=== PATIENT | female | born 1955 ===

== ENCOUNTER 2018-03-07 21:36 | Emergency (ER) | payer MEDICAID ==
[2018-03-07 22:02] VITALS: PULSE 86; TEMP 98.6
--- NOTE | 2018-03-07 22:31 | C.PDOC ---
History Of Present Illness 62 y/o female presents to ED for complaints of right sided and upper mid back pain that began suddenly today. Patient describes pain as sharp and worsens with movement. Denies chest pain, SOB, lower back pain, saddle distribution anesthesia, continence to urine or stool. Time Seen by Provider: 03/07/18 22:20 Chief Complaint (Nursing): Back Pain History Per: Patient History/Exam Limitations: no limitations Onset/Duration Of Symptoms: Hrs Current Symptoms Are (Timing): Still Present Quality Of Discomfort: Sharp Severity: Moderate Pain Scale Rating Of: 4 Previous Symptoms: Back Pain Associated Symptoms: None Exacerbating Factor(s): Movement Recent travel outside of the [place]: No Past Medical History Reviewed: Historical Data, Nursing Documentation, Vital Signs Vital Signs: Last Vital Signs Temp 98.6 F 03/08/18 00:12 Pulse 86 03/08/18 00:12 Resp 14 03/08/18 00:12 BP 160/86 H 03/08/18 00:12 Pulse Ox 98 03/08/18 00:12 - Medical History PMH: Back Problems, HTN Surgical History: No Surg Hx Family History: States: No Known Family Hx - Social History Hx Alcohol Use: No Hx Substance Use: No - Immunization History Hx Tetanus Toxoid Vaccination: No Hx Influenza Vaccination: Yes Hx Pneumococcal Vaccination: No Review Of Systems Except As Marked, All Systems Reviewed And Found Negative. Musculoskeletal: Positive for: Back Pain Physical Exam - Physical Exam Appears: Non-toxic, No Acute Distress Skin: Warm, Dry Head: Atraumatic, Normacephalic Eye(s): bilateral: Normal Inspection, PERRL, EOMI Oral Mucosa: Moist Neck: No Midline Cervical Tenderness, No Paracervical Tenderness, Supple Chest: Symmetrical, No Tenderness Cardiovascular: Rhythm Regular Respiratory: No Decreased Breath Sounds, No Rales, No Rhonchi, No Wheezing Gastrointestinal/Abdominal: Soft, No Tenderness Back: Other (Parathoracic tenderness; No swelling, erythema or crepitus; neurovascular intact distally ) Extremity: Normal ROM, No Deformity Extremity: Bilateral: Atraumatic, Normal Color And Temperature, Normal ROM Neurological/Psych: Oriented x3, Normal Speech (Speaking in full sentences ), Other (No focal deficits ) Gait: Steady ED Course And Treatment O2 Sat by Pulse Oximetry: 97 (RA) Pulse Ox Interpretation: Normal - Radiology CXR: Interpreted by Me, Viewed By Me CXR Interpretation: Yes: No Acute Disease. No: Infiltrates Medical Decision Making Medical Decision Making: Adminsitered Percoset and Toradol. Ordered Dorsal throacic X-Ray, EKG, CXR, and urinalysis. EKG: - Normal sinus rhythm at 79bpm - Normal [place] - Normal intervals - No ST-wave changes Assessment: - Mid thoracic back pain - Patient is stable for discharge Disposition Counseled Patient/Family Regarding: Studies Performed - Disposition Referrals: Erlin Yee MD [Primary Care Provider] - Disposition: HOME/ ROUTINE Disposition Time: 23:57 Condition: IMPROVED Additional Instructions: follow up with your family doctor within 2 days call to make an appointment take medications as needed for pain return to ER if symptoms worsens or progress Prescriptions: Naproxen [Naprosyn] 500 mg PO BID PRN #16 tab PRN Reason: Pain, Moderate (4-7) traMADol [Ultram] 50 mg PO TID PRN #12 tab PRN Reason: Pain, Moderate (4-7) Instructions: Low Back Pain in Adults, Upper Back Pain (DC) Forms: [facility] (Bengali), General Discharge Instructions - Clinical Impression Clinical Impression: Thoracic back pain - Scribe Statement The provider has reviewed the documentation as recorded by the Scribe Lan Marquez All medical record entries made by the Scribe were at my direction and personally dictated by me. I have reviewed the chart and agree that the record accurately reflects my personal performance of the history, physical exam, medical decision making, and the department course for this patient. I have also personally directed, reviewed, and agree with the discharge instructions and disposition.
[2018-03-07] MEDS ORDERED: Oxycodone/Acetaminophen 5/325 mg Tab PO STA (22:33)
[2018-03-07] MEDS ORDERED: Oxycodone/Acetaminophen 5/325 mg Tab ONE (22:49)
[2018-03-07 23:44] LABS: SQUAMOUS EPITHIAL 2 /hpf (0-5); URINE BILIRUBIN NEGATIVE (NEGATIVE); URINE BLOOD NEGATIVE (NEGATIVE); URINE CLARITY Clear (Clear); URINE COLOR Yellow (YELLOW); URINE GLUCOSE (UA) NORMAL (Normal); URINE LEUKOCYTE ESTERASE NEG Leu/uL (Negative); URINE PROTEIN NEGATIVE (NEGATIVE); URINE UROBILINOGEN NORMAL mg/dL (0.2-1.0)
[2018-03-08 00:13] VITALS: BP 160/86; RESP 14
[2018-03-08 00:26] VITALS: O2SAT 97
--- NOTE | 2018-03-08 10:15 | RAD ---
HISTORY: back pain COMPARISON: Chest radiograph dated 09/28/2017. TECHNIQUE: Chest PA and lateral FINDINGS: LUNGS: No active pulmonary disease. PLEURA: No significant pleural effusion identified. No pneumothorax apparent. CARDIOVASCULAR: Atherosclerotic aortic calcifications. Cardiomediastinal silhouette within normal limits. OSSEOUS STRUCTURES: Unchanged. VISUALIZED UPPER ABDOMEN: Normal. OTHER FINDINGS: None. IMPRESSION: No active disease.
--- NOTE | 2018-03-08 10:16 | RAD ---
HISTORY: back pain COMPARISON: Chest radiograph dated 09/28/2017. FINDINGS: BONES: Alignment maintained. No fracture. DISC SPACES: Multilevel disc space narrowing. SOFT TISSUES: Normal. OTHER FINDINGS: None. IMPRESSION: No acute fracture. Degenerative changes.
--- NOTE | 2018-03-09 20:58 | CARD ---
APPROVED REPORT EKG Measurement Heart [id number] CT 154P23 [id number] <Conclusion> Normal sinus rhythm Normal ECG
== END 2018-03-08 00:12 | disposition home or self-care (01) ==
LOC: C.ER 21:36 → SUPCPDRO 21:36 → C.ER 03-08 00:12
DX: M54.6 Pain in thoracic spine (principal)
CPT/HCPCS: 71046; 72070; 81001; 93005; 96372; 99284; J1885

== ENCOUNTER 2018-08-15 10:02 | Emergency (ER) | payer MEDICAID ==
[2018-08-15 10:14] VITALS: BMI 30.4
[2018-08-15 10:17] VITALS: TEMP 98.4; O2SAT 96
[2018-08-15] MEDS ORDERED: Albuterol-Ipratrop 3 mg / 0.5 (3 ml) UD ONE ×2 (10:51→11:17)
--- NOTE | 2018-08-15 11:58 | C.PDOC ---
History Of Present Illness 63 year old female presents to the ED for evaluation of cough, congestion, back pain, and chest discomfort associated with cough which has been intermittent for two weeks. Patient has been taking [id number] medication and cough medicine prescribed by her PMD, without relief. She denies fever, chills, nausea, vomiting. Time Seen by Provider: 08/15/18 11:15 Chief Complaint (Nursing): Cough, Cold, Congestion History Per: Patient History/Exam Limitations: no limitations Onset/Duration Of Symptoms: Other (two weeks ) Current Symptoms Are (Timing): Still Present Associated Symptoms: Cough, Nasal Congestion. denies: Fever, Chills, Nausea, Vomiting Additional History Per: Patient Past Medical History Reviewed: Historical Data, Nursing Documentation, Vital Signs Vital Signs: Last Vital Signs Temp 98.4 F 08/15/18 10:14 Pulse 101 H 08/15/18 10:14 Resp 22 08/15/18 10:14 BP 155/87 H 08/15/18 10:14 Pulse Ox 96 08/15/18 10:14 - Medical History PMH: Back Problems (fx), HTN Surgical History: No Surg Hx Family History: States: Unknown Family Hx - Social History Hx Alcohol Use: No Hx Substance Use: No - Immunization History Hx Tetanus Toxoid Vaccination: No Hx Influenza Vaccination: No Hx Pneumococcal Vaccination: No Review Of Systems Constitutional: Negative for: Fever, Chills ENT: Positive for: Nose Congestion Cardiovascular: Positive for: Other (chest discomfort with cough ) Respiratory: Positive for: Cough Gastrointestinal: Negative for: Nausea, Vomiting Musculoskeletal: Positive for: Back Pain Physical Exam - Physical Exam Appears: Non-toxic, No Acute Distress Skin: Normal Color, Warm, Dry Head: Atraumatic, Normacephalic Eye(s): bilateral: Normal Inspection Oral Mucosa: Moist Throat: Normal, No Erythema, No Exudate Neck: Supple Chest: Symmetrical, No Deformity, No Tenderness Cardiovascular: Rhythm Regular, No Murmur Respiratory: Normal Breath Sounds, No Rales, No Rhonchi, No Wheezing Extremity: Normal ROM, Capillary Refill (less than 2 seconds ) Neurological/Psych: Oriented x3, Normal Speech, Normal Cognition ED Course And Treatment O2 Sat by Pulse Oximetry: 96 (on RA) Pulse Ox Interpretation: Normal - Other Rad CXR X-Ray: Viewed By Me, Read By Radiologist Interpretation: Date of service: 08/15/2018. HISTORY: cough congestion. COMPARISON: March 07 2018. TECHNIQUE: Chest PA and lateral. FINDINGS: LUNGS: No consolidation. Lung volumes within normal limits. 7 mm nodular opacity over lateral left mid lung zone also projects over posterior left 5th rib-not appreciated on prior chest x-ray. Clinical significance indeterminate. PLEURA: No significant pleural effusion identified. No pneumothorax apparent. CARDIOVASCULAR: There is absence of aortic atherosclerotic calcification on x- ray. Top-normal heart size no pulmonary vascular congestion. OSSEOUS STRUCTURES: Moderate thoracic spondylosis. VISUALIZED UPPER ABDOMEN: Normal. OTHER FINDINGS: None. IMPRESSION: No consolidation or rosita pulmonary venous congestion. 7 to 8 mm nodular opacity projects over the lateral left mid lung zone and posterior left 5th rib its origin lung and/or rib is unclear at this time. Its clinical significance is also indeterminate. As it is not seen as such on the prior study consider noncontrast CT chest to further evaluate. Medical Decision Making Medical Decision Making: Impression: 63 year old female with cough associated with chest discomfort, congestion, back pain Plan: * CXR * Flu swab * Motrin PO * Tessalon Perles * Tylenol PO Progress: CXR and flu swab ordered and reviewed. Flu swab is negative for flu A/B. Motrin PO, Tessalon Perles PO, and Tylenol PO given. On reassessment, patient is resting comfortably, showing no signs of distress and is stable for discharge. Patient is advised to follow up with her PMD within 1-2 days for further evaluation. Advised to return to the ED if symptoms persist or worsen. Disposition Counseled Patient/Family Regarding: Diagnosis, Need For Followup - Disposition Referrals: Erlin Yee MD [Staff Provider] - Disposition: HOME/ ROUTINE Disposition Time: 11:55 Condition: GOOD Additional Instructions: You have viral upper respiratory infection. Take Tylenol or Motrin alternating every 4-6 hours for Fever 100.4F or higher. Rest and drink plenty of fluids. May use cool mist humidifier or vaporizer in room. Try taking over the counter antihistamine (Claritin, Tyra, Zyrtec), Decongestant or Cough medicine (Mucinex) as needed every 6-8 hours. Follow up with your primary medical doctor or clinic in 1 week for further evaluation. Prescriptions: Benzonatate [Tessalon Perles] 100 mg PO TID #30 sgl Ibuprofen [Motrin] 600 mg PO Q8 #30 tab Methylprednisolone [Medrol Dose Pack (21 tabs)] 4 mg PO DAILY #21 mg Instructions: Upper Respiratory Infection (ED) Forms: [facility] (Malawian), Work Excuse - POA Present On Arrival: None - Clinical Impression Clinical Impression: Upper respiratory infection - PA / [employer]IENT [employer] / Resident Statement MD/DO has reviewed & agrees with the documentation as recorded. - Scribe Statement The provider has reviewed the documentation as recorded by the Scribe (Ania Jones) All medical record entries made by the Scribe were at my direction and personally dictated by me. I have reviewed the chart and agree that the record accurately reflects my personal performance of the history, physical exam, medical decision making, and the department course for this patient. I have also personally directed, reviewed, and agree with the discharge instructions and disposition.
[2018-08-15 12:10] VITALS: BP 147/80; PULSE 85; RESP 20
--- NOTE | 2018-08-15 15:22 | RAD ---
Date of service: 08/15/2018 HISTORY: cough congestion COMPARISON: March 07 2018 TECHNIQUE: Chest PA and lateral FINDINGS: LUNGS: No consolidation. Lung volumes within normal limits. 7 mm nodular opacity over lateral left mid lung zone also projects over posterior left 5th rib-not appreciated on prior chest x-ray. Clinical significance indeterminate PLEURA: No significant pleural effusion identified. No pneumothorax apparent. CARDIOVASCULAR: There is absence of aortic atherosclerotic calcification on x-ray. Top-normal heart size no pulmonary vascular congestion. OSSEOUS STRUCTURES: Moderate thoracic spondylosis. VISUALIZED UPPER ABDOMEN: Normal. OTHER FINDINGS: None. IMPRESSION: No consolidation or rosita pulmonary venous congestion. 7 to 8 mm nodular opacity projects over the lateral left mid lung zone and posterior left 5th rib its origin lung and/or rib is unclear at this time. Its clinical significance is also indeterminate. As it is not seen as such on the prior study consider noncontrast CT chest to further evaluate. Comments: Study marked for PA review .
== END 2018-08-15 12:12 | disposition home or self-care (01) ==
LOC: C.ER 10:02
DX: J06.9 Acute upper respiratory infection, unspecified (principal)

== ENCOUNTER 2018-12-02 13:07 | Inpatient (IN) | payer MEDICAID ==
[2018-12-02 13:08] VITALS: BMI 30.4
[2018-12-02 13:15] VITALS: RESP 20
[2018-12-02] MEDS ORDERED: MethylPREDNISolone 40 mg Vial IVP STA (13:30)
[2018-12-02] MEDS ORDERED: Albuterol-Ipratrop 3 mg / 0.5 (3 ml) UD INH STA ×2 (13:30→13:31)
--- NOTE | 2018-12-02 13:35 | C.PDOC ---
History Of Present Illness 63 years old female with PMHx of HTN presents to ED for complaints of cough with yellow sputum, wheezing, bodyaches, and subjective fever that began 3 days ago. Denies any other physical complaints. Time Seen by Provider: 12/02/18 13:21 Chief Complaint (Nursing): Shortness Of Breath History Per: Patient History/Exam Limitations: no limitations Onset/Duration Of Symptoms: Days (3) Current Symptoms Are (Timing): Still Present Current Respiratory Medications: See Home Med List Associated Symptoms: Fever Recent travel outside of the [place]: No Past Medical History Reviewed: Historical Data, Nursing Documentation, Vital Signs Vital Signs: Last Vital Signs Temp 99.2 F 12/02/18 13:12 Pulse 115 H 12/02/18 13:12 Resp 20 12/02/18 13:12 BP 190/108 H 12/02/18 13:12 Pulse Ox 98 12/02/18 13:12 - Medical History PMH: Back Problems (fx), HTN Family History: States: Unknown Family Hx - Social History Hx Alcohol Use: No Hx Substance Use: No - Immunization History Hx Tetanus Toxoid Vaccination: No Hx Influenza Vaccination: No Hx Pneumococcal Vaccination: No Review Of Systems Except As Marked, All Systems Reviewed And Found Negative. Constitutional: Positive for: Fever, Other (Bodyaches ). Negative for: Chills Respiratory: Positive for: Cough (Dry ), Wheezing Gastrointestinal: Negative for: Nausea, Vomiting, Diarrhea Skin: Negative for: Rash Neurological: Negative for: Weakness, Numbness Physical Exam - Physical Exam Appears: Non-toxic, No Acute Distress, Other (Anxious ) Skin: Normal Color, Warm, Dry, No Rash Head: Atraumatic, Normacephalic Eye(s): bilateral: Normal Inspection, PERRL, EOMI Oral Mucosa: Moist Neck: Normal ROM, Supple Chest: Symmetrical, No Tenderness Cardiovascular: Rhythm Regular, No Murmur Respiratory: No Rales, Rhonchi (Diffuse ), No Wheezing Gastrointestinal/Abdominal: Soft, No Tenderness Extremity: Normal ROM Extremity: Bilateral: Atraumatic, Normal Color And Temperature, Normal ROM Pulses: Left Radial: Normal, Right Radial: Normal Neurological/Psych: Oriented x3, Normal Speech, Other (No focal deficits ) Gait: Steady ED Course And Treatment - Laboratory Results Result Diagrams: 12/06/18 06:30 12/06/18 06:30 O2 Sat by Pulse Oximetry: 98 (RA) Pulse Ox Interpretation: Normal Medical Decision Making Medical Decision Making: asthamtic bronchitis/copd (heavy previous smoker) Plan: * Duoneb/ Peak flow * methylprednisolone * Tylenol * CXR * Blood work * Flu Swab * Urinalysis * pt reassesse dsymptoms improving but persisitent. cxr neg. accepted dr yee Disposition - Disposition Disposition: HOSPITALIZED Disposition Time: 07:00 Condition: STABLE - Clinical Impression Clinical Impression: COPD (chronic obstructive pulmonary disease) - PA / [employer] / Resident Statement MD/DO has reviewed & agrees with the documentation as recorded. - Scribe Statement Lan Marquez All medical record entries made by the Scribe were at my direction and personally dictated by me. I have reviewed the chart and agree that the record accurately reflects my personal performance of the history, physical exam, medical decision making, and the department course for this patient. I have also personally directed, reviewed, and agree with the discharge instructions and disposition. Decision To Admit - Pt Status Changed To: Hospital Disposition Of: Observation - . Bed Request Type: Regular Admitting Physician: Erlin Yee Patient Diagnosis: COPD (chronic obstructive pulmonary disease)
[2018-12-02 14:00] LABS: BASO % 0.6 % (0.0-2.0); EOS # 0.1 K/uL (0.0-0.7); EOS % 1.9 % (0.0-4.0); HEMOGLOBIN 13.2 g/dL (11.0-16.0); LYMPH # 2.3 K/uL (1.0-4.3); LYMPH % 32.2 % (20.0-40.0); MEAN CELL VOLUME 72.2 fL (81.0-99.0); MEAN CORPUSCULAR HEMOGLOBIN 22.6 pg (27.0-31.0); MEAN CORPUSCULAR HGB CONC 31.3 g/dL (33.0-37.0); MEAN PLATELET VOLUME 8.3 fL (7.2-11.7); MONO # 0.5 K/uL (0.0-0.8); MONO % 7.2 % (0.0-10.0); NEUT # 4.2 K/uL (1.8-7.0); NEUT % 58.1 % (50.0-75.0); NRBC % 0.1 % (0.0-2.0); RBC 5.86 Mil/uL (3.80-5.20); RED CELL DISTRIBUTION WIDTH 14.6 % (11.5-14.5); WHITE BLOOD COUNT 7.2 K/uL (4.8-10.8)
[2018-12-02] MEDS ORDERED: Albuterol-Ipratrop 3 mg / 0.5 (3 ml) UD ONE (14:00)
[2018-12-02 14:07] LABS: INR 1.1
[2018-12-02 14:14] LABS: SQUAMOUS EPITHIAL 2 /hpf (0-5); URINE BACTERIA RARE (<OCC); URINE BILIRUBIN NEGATIVE (NEGATIVE); URINE BLOOD NEGATIVE (NEGATIVE); URINE CLARITY Hazy (Clear); URINE COLOR Yellow (YELLOW); URINE GLUCOSE (UA) NORMAL (Normal); URINE LEUKOCYTE ESTERASE NEG Leu/uL (Negative); URINE PROTEIN NEGATIVE (NEGATIVE); URINE UROBILINOGEN NORMAL mg/dL (0.2-1.0)
[2018-12-02 14:15] LABS: ALB/GLOB RATIO 1.4 (1.0-2.1); ALBUMIN 4.1 g/dL (3.5-5.0); ALT/SGPT 23 U/L (9-52); AST/SGOT 33 U/L (14-36); BLOOD UREA NITROGEN 15 mg/dL (7-17); CALCIUM 9.1 mg/dl (8.6-10.4); GFR NON-AFRICAN AMERICAN > 60
--- NOTE | 2018-12-02 16:33 | RAD ---
Date of service: 12/02/2018 HISTORY: SOB COMPARISON: Comparison is made with 08/15/2018 TECHNIQUE: Chest PA and lateral views FINDINGS: LUNGS: No active pulmonary disease. PLEURA: No significant pleural effusion identified. No pneumothorax apparent. CARDIOVASCULAR: No aortic atherosclerotic calcification present. Normal cardiac size. No pulmonary vascular congestion. OSSEOUS STRUCTURES: No significant abnormalities. VISUALIZED UPPER ABDOMEN: Normal. OTHER FINDINGS: None. IMPRESSION: No active disease.
[2018-12-02] MEDS: guaiFENesin 600 mg ER Tab PO SCH (21:16)
[2018-12-02] MEDS: MethylPREDNISolone 40 mg Vial IVP SCH (21:17)
[2018-12-02 21:45] LABS: ABG ALLEN TEST POS; ARTERIAL BLOOD GAS HCO3 19.6 mmol/L (21-28); ARTERIAL BLOOD GAS HEMOGLOBIN 11.3 g/dL (11.7-17.4); ARTERIAL BLOOD GAS O2 SAT 98.6 % (95-98); ARTERIAL BLOOD GAS PCO2 29 mm/Hg (35-45); ARTERIAL BLOOD GAS PH 7.38 (7.35-7.45); ARTERIAL BLOOD GAS PO2 102 mm/Hg (80-100); ARTERIAL BLOOD GAS TCO2 18.1 mmol/L (22-28)
[2018-12-03] MEDS: guaiFENesin 100 mg/5 ml Syrup UD PO PRN ×4 (04:10→21:32)
[2018-12-03] MEDS: Albuterol-Ipratrop 3 mg / 0.5 (3 ml) UD INH SCH ×4 (08:47→20:18)
[2018-12-03] MEDS: guaiFENesin 600 mg ER Tab PO SCH ×2 (09:11→17:23)
[2018-12-03] MEDS: MethylPREDNISolone 40 mg Vial IVP SCH ×2 (09:11→21:31)
[2018-12-03] MEDS: Enoxaparin 40 mg Syringe SC SCH (09:12)
--- NOTE | 2018-12-03 23:08 | CP.PCM.HP ---
Present on Admission - Present on Admission Any Indicators Present on Admission: No Past Patient History - Infectious Disease Hx of Infectious Diseases: None - Past Social History Smoking Status: Former Smoker - CARDIAC Hx Hypertension: Yes - MUSCULOSKELETAL/RHEUMATOLOGICAL Hx Musculoskeletal Disorders: Yes - PSYCHIATRIC Hx Substance Use: No - SURGICAL HISTORY Hx Surgeries: Yes Hx Tubal Ligation: Yes Other/Comment: R hand surgery. cysts removed from breasts - ANESTHESIA Hx Anesthesia: Yes Hx Anesthesia Reactions: No Meds Allergies/Adverse Reactions: Allergies Allergy/AdvReac Type Severity Reaction Status Date / Time No Known Allergies Allergy Verified 12/02/18 13:15 Results - Vital Signs Recent Vital Signs: Last Vital Signs Temp 99.1 F 12/03/18 16:04 Pulse 102 H 12/03/18 16:04 Resp 20 12/03/18 16:04 BP 162/93 H 12/03/18 16:04 Pulse Ox 96 12/03/18 20:00 - Labs Result Diagrams: 12/02/18 13:56 12/02/18 13:56
[2018-12-04] MEDS: Albuterol-Ipratrop 3 mg / 0.5 (3 ml) UD INH SCH ×5 (00:51→19:52)
[2018-12-04] MEDS: guaiFENesin 100 mg/5 ml Syrup UD PO PRN (02:00)
--- NOTE | 2018-12-04 05:57 | HP ---
CHIEF COMPLAINT: Cough and shortness of breath for last two days. HISTORY OF PRESENT ILLNESS: This is a 63-year-old female, well known to me with history of chronic smoker, hypertension and has history of two days of cough, congestion, shortness of breath, wheezing, chest tightness, chest pain upon deep inspiration, generalized weakness, dyspnea on exertion, wheezing, history of runny nose, stuffy nose, history of light yellow sputum production. She denies any nausea, vomiting, or diarrhea. She denies any history of polyuria, polydipsia, or polyphagia. She denies any history of hematuria or pyuria. She denies any sneezing, itchy eyes, or itchy nose. There is chest pain upon deep inspiration. Chest pain is in the substernal area. There is no history of dyspepsia. There is no history of generalized weakness. She has headache and dizziness. She denies any history of joint pain or hip pain. She denies any history of polyuria, polydipsia, or polyphagia. PAST MEDICAL HISTORY: Hypertension, hyperlipidemia. SOCIAL HISTORY: She is ex-smoker, non-EtOH user. CURRENT MEDICATIONS: At home, she takes losartan. PHYSICAL EXAMINATION: GENERAL: An elderly female, in minimal distress. VITAL SIGNS: Blood pressure 162/93, pulse 102, respiratory rate 20, temperature 99.1. SKIN: Senile turgor. No bruises. No purpura. No petechiae. No ecchymosis. HEENT: Atraumatic and normocephalic. Negative pallor. Negative jaundice. Extraocular movements are intact. NECK: Supple. Using accessory muscle. LUNGS: Bilateral inspiratory and expiratory rhonchi. Decreased air entry. Bibasilar crackles. CARDIOVASCULAR SYSTEM: S1 and S2, regular. ABDOMEN: Soft, nontender. Bowel sounds are positive. RECTAL: No masses. No bleed. EXTREMITIES: No clubbing, cyanosis, or edema. CENTRAL NERVOUS SYSTEM: Awake, alert, and oriented x3. Cranial nerves II through XII are normal. Power 5/5 x4. Plantars are downgoing. PLAN: Admit. Detailed orders are written. Seen and examined. Erlin Yee MD
[2018-12-04] MEDS: guaiFENesin 600 mg ER Tab PO SCH ×2 (09:10→17:16)
[2018-12-04] MEDS: MethylPREDNISolone 40 mg Vial IVP SCH ×2 (09:10→21:13)
[2018-12-04] MEDS: Enoxaparin 40 mg Syringe SC SCH (09:10)
[2018-12-04] MEDS ORDERED: Pneumococcal 23-Valent Vaccine IM ONE (10:00)
[2018-12-04] MEDS: Petrolatum Oint Foilpak (5 gm) TOP SCH ×2 (18:20→21:11)
--- NOTE | 2018-12-04 18:42 | CP.PCM.CON ---
History of Present Illness - History of Present Illness History of Present Illness: 63 year old female with past medical history of hypertension came to the hospital with 1 week of shortness of breath, wheezing, and a cough. 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 Patient saw Dr. Armstrong who gave her theraflu but she came to the hospital due to the symptoms not remitting. She is a chronic smoker of 40 years who quit 2 months ago. She denies ever having asthma or difficulty breathing in the past. In the ED patient was hypertensive, and tachypneic. She was treated with nebulizers and steroids, guaifenisin and ceftriaxone and transfered to the floor for COPD exacerbation. Patient states she has carpet at home but denies pets, environmental exposure to allergens/irritants/mold, denies GERD symptoms, prior hospitalizations, or snoring. PMHx: HTN PSHx: benign cyst of the breast, hand laceration repair. Meds: as per EMR Social: Smoker of 40 years, quit 2 months ago Allergies: denies ROS: Patient admits to cough, SOB, headache and chest pain with deep inspiration. All other systems reviewed and negative PE: HEENT: Atraumatic, normocephalic, moist mucous membranes, normal neck inspection Respiratory: Lungs clear to auscultation bilaterally Cardiovascular: regular rate and rhythm GI/abdominal: normoactive bowel sounds Extremities: no pedal edema Neurologic: alert Images: CXR- shows no active disease Assesment/Plan 1. COPD exacerbation. Continue current regimen. Newly diagnosed could benefit from PFT's Past Patient History - Infectious Disease Hx of Infectious Diseases: None - Past Medical History & Family History Past Medical History?: Yes - Past Social History Smoking Status: Current Some Days Smoker - CARDIAC Hx Hypertension: Yes - MUSCULOSKELETAL/RHEUMATOLOGICAL Hx Falls: No - PSYCHIATRIC Hx Substance Use: No - SURGICAL HISTORY Hx Surgeries: Yes Hx Tubal Ligation: Yes Other/Comment: R hand surgery. cysts removed from breasts - ANESTHESIA Hx Anesthesia: Yes Hx Anesthesia Reactions: No Meds Allergies/Adverse Reactions: Allergies Allergy/AdvReac Type Severity Reaction Status Date / Time No Known Allergies Allergy Verified 12/02/18 13:15 - Medications Medications: Current Medications Albuterol/Ipratropium (Duoneb 3 Mg/0.5 Mg (3 Ml) Ud) 3 ml INH RQID [facility] Last Admin: 12/04/18 16:03 Dose: 3 ml Emollient Ointment (Vaseline Oint) 5 gm TOP QID [facility] Last Admin: 12/04/18 18:20 Dose: 5 gm Enoxaparin Sodium (Lovenox) 40 mg SC DAILY [facility] Last Admin: 12/04/18 09:10 Dose: 40 mg Guaifenesin (Mucinex La) 600 mg PO BID [facility] Last Admin: 12/04/18 17:16 Dose: 600 mg Guaifenesin (Robitussin) 100 mg PO Q4H PRN PRN Reason: Cough Last Admin: 12/04/18 02:00 Dose: 100 mg Ceftriaxone Sodium 1 gm/ (Sodium Chloride) 100 mls @ 100 mls/hr IVPB Q24H [facility]; Protocol Last Admin: 12/03/18 21:31 Dose: 100 mls/hr Losartan Potassium (Cozaar) 100 mg PO DAILY [facility] Last Admin: 12/04/18 09:10 Dose: 100 mg Methylprednisolone (Solu-Medrol) 60 mg IVP Q12H [facility] Last Admin: 12/04/18 09:10 Dose: 60 mg Results - Vital Signs Recent Vital Signs: Last Vital Signs Temp 98.5 F 12/04/18 16:00 Pulse 115 H 12/04/18 16:00 Resp 20 12/04/18 16:46 BP 167/91 H 12/04/18 16:00 Pulse Ox 95 12/04/18 16:46 - Labs Result Diagrams: 12/02/18 13:56 12/02/18 13:56
--- NOTE | 2018-12-04 21:59 | CP.PCM.PN ---
Subjective - Date & Time of Evaluation Date of Evaluation: 12/04/18 Time of Evaluation: 07:20 - Subjective Subjective: dictated Objective - Vital Signs/Intake and Output Vital Signs (last 24 hours): Temp Pulse Resp BP Pulse Ox 98.5 F 115 H 20 167/91 H 95 12/04/18 16:00 12/04/18 16:00 12/04/18 16:46 12/04/18 16:00 12/04/18 16:46 Intake and Output: 12/04/18 12/05/18 18:59 06:59 Intake Total 300 Balance 300 - Medications Medications: Current Medications Albuterol/Ipratropium (Duoneb 3 Mg/0.5 Mg (3 Ml) Ud) 3 ml INH RQID [facility] Last Admin: 12/04/18 19:52 Dose: 3 ml Emollient Ointment (Vaseline Oint) 5 gm TOP QID [facility] Last Admin: 12/04/18 21:11 Dose: Not Given Enoxaparin Sodium (Lovenox) 40 mg SC DAILY [facility] Last Admin: 12/04/18 09:10 Dose: 40 mg Guaifenesin (Mucinex La) 600 mg PO BID [facility] Last Admin: 12/04/18 17:16 Dose: 600 mg Guaifenesin (Robitussin) 100 mg PO Q4H PRN PRN Reason: Cough Last Admin: 12/04/18 02:00 Dose: 100 mg Hydrochlorothiazide (Hydrodiuril) 25 mg PO DAILY [facility] Last Admin: 12/04/18 19:30 Dose: 25 mg Ceftriaxone Sodium 1 gm/ (Sodium Chloride) 100 mls @ 100 mls/hr IVPB Q24H [facility]; Protocol Last Admin: 12/04/18 20:25 Dose: 100 mls/hr Losartan Potassium (Cozaar) 100 mg PO DAILY [facility] Last Admin: 12/04/18 09:10 Dose: 100 mg Methylprednisolone (Solu-Medrol) 60 mg IVP Q12H [facility] Last Admin: 12/04/18 21:13 Dose: 60 mg - Labs Labs: 12/02/18 13:56 12/02/18 13:56 PT 12.0 SECONDS (9.7-12.2) 12/02/18 13:56 INR 1.1 12/02/18 13:56 APTT 32 SECONDS (21-34) 12/02/18 13:56
[2018-12-05] MEDS: guaiFENesin 100 mg/5 ml Syrup UD PO PRN (03:50)
--- NOTE | 2018-12-05 03:51 | PN ---
DATE: 12/04/2018 SUBJECTIVE: The patient is less short of breath, less cough, less wheezing. Blood pressure is up. PHYSICAL EXAMINATION: VITAL SIGNS: Blood pressure 167/91, pulse 115, respiratory rate 20, temperature 98.5. LUNGS: Bilateral decreased air entry. Positive rhonchi. CARDIOVASCULAR SYSTEM: S1, S2 regular. ABDOMEN: Soft, nontender. ASSESSMENT: 1. Exacerbation of chronic obstructive pulmonary disease. 2. Poorly controlled hypertension. PLAN: Echocardiogram. Solu-Medrol taper once the patient is stable. Erlin Yee MD
[2018-12-05 07:15] LABS: HEMOGLOBIN 13.4 g/dL (11.0-16.0); MEAN CELL VOLUME 72.5 fL (81.0-99.0); MEAN CORPUSCULAR HEMOGLOBIN 22.9 pg (27.0-31.0); MEAN CORPUSCULAR HGB CONC 31.5 g/dL (33.0-37.0); MEAN PLATELET VOLUME 8.9 fL (7.2-11.7); RBC 5.86 Mil/uL (3.80-5.20); RED CELL DISTRIBUTION WIDTH 14.8 % (11.5-14.5)
[2018-12-05 07:23] LABS: WHITE BLOOD COUNT 16.4 K/uL (4.8-10.8)
[2018-12-05 07:51] LABS: BLOOD UREA NITROGEN 23 mg/dL (7-17); CALCIUM 9.9 mg/dl (8.6-10.4); GFR NON-AFRICAN AMERICAN > 60
[2018-12-05] MEDS: Albuterol-Ipratrop 3 mg / 0.5 (3 ml) UD INH SCH ×4 (09:00→19:41)
[2018-12-05] MEDS: MethylPREDNISolone 40 mg Vial IVP SCH ×2 (10:11→21:00)
[2018-12-05] MEDS: Petrolatum Oint Foilpak (5 gm) TOP SCH ×4 (10:12→21:00)
[2018-12-05] MEDS: guaiFENesin 600 mg ER Tab PO SCH ×2 (10:12→17:05)
[2018-12-05] MEDS: Enoxaparin 40 mg Syringe SC SCH (10:12)
--- NOTE | 2018-12-05 15:12 | CP.PCM.PN ---
Subjective - Date & Time of Evaluation Date of Evaluation: 12/05/18 Time of Evaluation: 11:00 - Subjective Subjective: Patient seen at bedside. States she is feeling improved from yesterday. Still complains of productive cough and shortness of breath but far better than yesterday. Her blood pressure has stabilized. ROS: Patient admits to cough, SOB All other systems reviewed and negative PE: HEENT: Atraumatic, normocephalic, moist mucous membranes, normal neck inspection Respiratory: Lungs clear to auscultation bilaterally, coughing Cardiovascular: regular rate and rhythm GI/abdominal: normoactive bowel sounds Extremities: no pedal edema Neurologic: alert Images: Echo- waiting on reading Assesment/Plan 1. COPD exacerbation. Continue current regimen Objective - Vital Signs/Intake and Output Vital Signs (last 24 hours): Temp Pulse Resp BP Pulse Ox 98.6 F 90 20 133/70 96 12/05/18 08:03 12/05/18 08:03 12/05/18 08:03 12/05/18 08:03 12/05/18 08:03 Intake and Output: 12/05/18 12/05/18 06:59 18:59 Intake Total 500 240 Balance 500 240 - Medications Medications: Current Medications Albuterol/Ipratropium (Duoneb 3 Mg/0.5 Mg (3 Ml) Ud) 3 ml INH RQID [facility] Last Admin: 12/05/18 12:02 Dose: 3 ml Emollient Ointment (Vaseline Oint) 5 gm TOP QID [facility] Last Admin: 12/05/18 14:00 Dose: 5 gm Enoxaparin Sodium (Lovenox) 40 mg SC DAILY [facility] Last Admin: 12/05/18 10:12 Dose: 40 mg Guaifenesin (Mucinex La) 600 mg PO BID [facility] Last Admin: 12/05/18 10:12 Dose: 600 mg Guaifenesin (Robitussin) 100 mg PO Q4H PRN PRN Reason: Cough Last Admin: 12/05/18 03:50 Dose: 100 mg Hydrochlorothiazide (Hydrodiuril) 25 mg PO DAILY [facility] Last Admin: 12/05/18 10:12 Dose: 25 mg Ceftriaxone Sodium 1 gm/ (Sodium Chloride) 100 mls @ 100 mls/hr IVPB Q24H [facility]; Protocol Last Admin: 12/04/18 20:25 Dose: 100 mls/hr Losartan Potassium (Cozaar) 100 mg PO DAILY [facility] Last Admin: 12/05/18 10:12 Dose: 100 mg Methylprednisolone (Solu-Medrol) 60 mg IVP Q12H [facility] Last Admin: 12/05/18 10:11 Dose: 60 mg - Labs Labs: 12/05/18 07:04 12/05/18 07:04 PT 12.0 SECONDS (9.7-12.2) 12/02/18 13:56 INR 1.1 12/02/18 13:56 APTT 32 SECONDS (21-34) 12/02/18 13:56
--- NOTE | 2018-12-05 20:23 | CARD ---
APPROVED REPORT Date of service: 12/05/2018 EXAM: Two-dimensional and M-mode echocardiogram with Doppler and color Doppler. Other Information Quality : GoodRhythm : INDICATION Dyspnea RISK FACTORS Hypertension 2D DIMENSIONS IVSd1.9 (0.7-1.1cm)LVDd3.3 (3.9-5.9cm) PWd1.1 (0.7-1.1cm)LA Qdvzey95 (18-58mL) LVDs1.7 (2.5-4.0cm)FS (%) 48.8 % LVEF (%)75.0 (>50%)LVEF (Kamara's)74.22 % IVC0.00 cm M-Mode DIMENSIONS RVDd1.11 (2.1-3.2cm)Left Atrium (MM)3.63 (2.5-4.0cm) IVSd1.84 (0.7-1.1cm)Aortic Root3.05 (2.2-3.7cm) LVDd4.46 (4.0-5.6cm)Aortic Cusp Exc.2.06 (1.5-2.0cm) PWd1.33 (0.7-1.1cm)FS (%) 46 % LVDs2.40 (2.0-3.8cm)LVEF (%)78 (>50%) Aortic Valve AoV Peak Beaubvni265.6cm/sAoV VTI44.9cmAO Peak GR.18mmHg AO Mean GR.6mmHg Mitral Valve MV E Dvxebdtq91.7cm/sMV A Jumdwmyw297.2cm/sE/A ratio0.6 TDI Lateral E' Peak V6.48cm/sMedial E' Peak V5.84cm/sE/Lateral E'12.0 E/Medial E'13.3 Tricuspid Valve TR Peak Qbkhbrvw245xx/sTR Peak Gr.22jqFaWQLL74lhTm LEFT VENTRICLE The left ventricle is normal size. There is normal left ventricular wall thickness. The left ventricular function is normal. The left ventricular ejection fraction is within the normal range. 74% No regional wall motion abnormalities noted. Transmitral Doppler flow pattern is Grade I-abnormal relaxation pattern. No left ventricle thrombus noted on this study. There is no ventricular septal defect visualized. There is no left ventricular aneurysm. There is no mass noted in the left ventricle. RIGHT VENTRICLE The right ventricle is normal size. There is normal right ventricular wall thickness. The right ventricular systolic function is normal. ATRIA The left atrium size is normal. The right atrium size is normal. The interatrial septum is intact with no evidence for an atrial septal defect. AORTIC VALVE The aortic valve is normal in structure and function. No aortic regurgitation is present. There is no aortic valvular stenosis. There is no aortic valvular vegetation. MITRAL VALVE The mitral valve is normal in structure and function. There is no evidence of mitral valve prolapse. There is no mitral valve stenosis. There is no mitral valve regurgitation noted. TRICUSPID VALVE The tricuspid valve is normal in structure and function. There is no tricuspid valve regurgitation noted. There is no tricuspid valve prolapse or vegetation. There is no tricuspid valve stenosis. PULMONIC VALVE The pulmonary valve is normal in structure and function. There is no pulmonic valvular regurgitation. There is no pulmonic valvular stenosis. GREAT VESSELS The aortic root is normal in size. The ascending aorta is normal in size. The pulmonary artery is normal. The IVC is normal in size and collapses >50% with inspiration. PERICARDIAL EFFUSION The pericardium appears normal. There is no pleural effusion. <Conclusion> Normal left ventricular systolic function and doppler. Transmitral Doppler flow pattern is Grade I-abnormal relaxation pattern.
--- NOTE | 2018-12-05 21:20 | CP.PCM.PN ---
Subjective - Date & Time of Evaluation Date of Evaluation: 12/05/18 Time of Evaluation: 07:00 - Subjective Subjective: dictated Objective - Vital Signs/Intake and Output Vital Signs (last 24 hours): Temp Pulse Resp BP Pulse Ox 98.2 F 112 H 20 136/78 96 12/05/18 16:00 12/05/18 16:00 12/05/18 16:00 12/05/18 16:00 12/05/18 16:00 Intake and Output: 12/05/18 12/06/18 18:59 06:59 Intake Total 240 Balance 240 - Medications Medications: Current Medications Albuterol/Ipratropium (Duoneb 3 Mg/0.5 Mg (3 Ml) Ud) 3 ml INH RQID [facility] Last Admin: 12/05/18 19:41 Dose: 3 ml Emollient Ointment (Vaseline Oint) 5 gm TOP QID [facility] Last Admin: 12/05/18 21:00 Dose: Not Given Enoxaparin Sodium (Lovenox) 40 mg SC DAILY [facility] Last Admin: 12/05/18 10:12 Dose: 40 mg Guaifenesin (Mucinex La) 600 mg PO BID [facility] Last Admin: 12/05/18 17:05 Dose: 600 mg Guaifenesin (Robitussin) 100 mg PO Q4H PRN PRN Reason: Cough Last Admin: 12/05/18 03:50 Dose: 100 mg Hydrochlorothiazide (Hydrodiuril) 25 mg PO DAILY [facility] Last Admin: 12/05/18 10:12 Dose: 25 mg Ceftriaxone Sodium 1 gm/ (Sodium Chloride) 100 mls @ 100 mls/hr IVPB Q24H [facility]; Protocol Last Admin: 12/05/18 20:53 Dose: 100 mls/hr Losartan Potassium (Cozaar) 100 mg PO DAILY [facility] Last Admin: 12/05/18 10:12 Dose: 100 mg Methylprednisolone (Solu-Medrol) 60 mg IVP Q12H [facility] Last Admin: 12/05/18 21:00 Dose: 60 mg - Labs Labs: 12/05/18 07:04 12/05/18 07:04 PT 12.0 SECONDS (9.7-12.2) 12/02/18 13:56 INR 1.1 12/02/18 13:56 APTT 32 SECONDS (21-34) 12/02/18 13:56
--- NOTE | 2018-12-06 01:36 | PN ---
DATE: 12/05/2018 SUBJECTIVE: The patient is feeling better. She has less complex shortness of breath, less wheezing, blood pressure went down. No fever, no chills, no rigor. PHYSICAL EXAMINATION: VITAL SIGNS: Blood pressure 136/78, pulse 112, respiratory rate 20, temperature 98.2. LUNGS: Bilateral basal rhonchi. Decreased air entry. CARDIOVASCULAR: S1, S2, regular. ABDOMEN: Soft, nontender. Bowel sounds are positive. ASSESSMENT: 1. Exacerbation of chronic obstructive pulmonary disease, is improving. 2. Hypertension. Blood pressure is better controlled since diuretic yesterday. The patient's high white blood cell count is due to steroids. PLAN: Continue to taper steroid. Monitor the patient. Erlin Yee MD
[2018-12-06] MEDS: guaiFENesin 100 mg/5 ml Syrup UD PO PRN ×2 (06:16→10:51)
[2018-12-06 07:00] LABS: HEMOGLOBIN 13.8 g/dL (11.0-16.0); MEAN CORPUSCULAR HEMOGLOBIN 22.8 pg (27.0-31.0); MEAN CORPUSCULAR HGB CONC 31.6 g/dL (33.0-37.0); MEAN PLATELET VOLUME 8.4 fL (7.2-11.7); RBC 6.07 Mil/uL (3.80-5.20); RED CELL DISTRIBUTION WIDTH 14.6 % (11.5-14.5)
[2018-12-06 07:39] LABS: BLOOD UREA NITROGEN 31 mg/dL (7-17); CALCIUM 10.2 mg/dl (8.6-10.4); GFR NON-AFRICAN AMERICAN > 60
[2018-12-06 08:13] VITALS: BP 133/82; PULSE 90; TEMP 98.5
[2018-12-06] MEDS: Albuterol-Ipratrop 3 mg / 0.5 (3 ml) UD INH SCH ×2 (08:14→12:42)
[2018-12-06] MEDS: guaiFENesin 600 mg ER Tab PO SCH (09:52)
[2018-12-06] MEDS: Petrolatum Oint Foilpak (5 gm) TOP SCH ×2 (09:52→13:55)
[2018-12-06] MEDS: Enoxaparin 40 mg Syringe SC SCH (09:52)
[2018-12-06] MEDS ORDERED: MethylPREDNISolone 40 mg Vial IVP SCH (10:00)
--- NOTE | 2018-12-06 14:12 | CP.PCM.PN ---
Subjective - Date & Time of Evaluation Date of Evaluation: 12/06/18 Time of Evaluation: 14:12 - Subjective Subjective: PATIENT SEEN AND EXAMINED AT THE BEDSIDE Objective - Vital Signs/Intake and Output Vital Signs (last 24 hours): Temp Pulse Resp BP Pulse Ox 98.5 F 90 20 133/82 95 12/06/18 07:00 12/06/18 07:00 12/06/18 07:00 12/06/18 07:00 12/06/18 07:00 Intake and Output: 12/06/18 12/06/18 06:59 18:59 Intake Total 400 200 Balance 400 200 - Medications Medications: Current Medications Albuterol/Ipratropium (Duoneb 3 Mg/0.5 Mg (3 Ml) Ud) 3 ml INH RQID [facility] Last Admin: 12/06/18 12:42 Dose: Not Given Emollient Ointment (Vaseline Oint) 5 gm TOP QID [facility] Last Admin: 12/06/18 13:55 Dose: 5 gm Enoxaparin Sodium (Lovenox) 40 mg SC DAILY [facility] Last Admin: 12/06/18 09:52 Dose: 40 mg Guaifenesin (Mucinex La) 600 mg PO BID [facility] Last Admin: 12/06/18 09:52 Dose: 600 mg Guaifenesin (Robitussin) 100 mg PO Q4H PRN PRN Reason: Cough Last Admin: 12/06/18 10:51 Dose: 100 mg Hydrochlorothiazide (Hydrodiuril) 25 mg PO DAILY [facility] Last Admin: 12/06/18 09:52 Dose: 25 mg Ceftriaxone Sodium 1 gm/ (Sodium Chloride) 100 mls @ 100 mls/hr IVPB Q24H [facility]; Protocol Last Admin: 12/05/18 20:53 Dose: 100 mls/hr Losartan Potassium (Cozaar) 100 mg PO DAILY [facility] Last Admin: 12/06/18 09:52 Dose: 100 mg Methylprednisolone (Solu-Medrol) 60 mg IVP DAILY [facility] Last Admin: 12/06/18 09:51 Dose: 60 mg - Labs Labs: 12/06/18 06:30 12/06/18 06:30 PT 12.0 SECONDS (9.7-12.2) 12/02/18 13:56 INR 1.1 12/02/18 13:56 APTT 32 SECONDS (21-34) 12/02/18 13:56 Assessment and Plan - Assessment and Plan (Free Text) Assessment: FOLLOW UP WITH DR JOSEPH IN HIS OFFICE -----CALL FOR APPOINTMENT FOLLOW UP WITH DR NEW IN HIS OFFICE CONTINUE HOME MEDICATION NEW PRESCRIPTION GIVEN COMBIVENT AND MEDROL DOSE ACTIVITY TOLERATED CALL DR JOSEPH OR GO TO THE EMERGENCY ROOM IF SYMPTOM RETURN OR WORSENING
[2018-12-06 16:47] VITALS: O2SAT 98
--- NOTE | 2018-12-06 22:33 | CP.PCM.DIS ---
Provider - Provider Date of Admission: 12/04/18 14:53 Attending physician: Erlin Yee MD Consults: 12/02/18 19:48 Pulmonology Consult Routine Comment: Consulting Provider: Inderjit Ramos Consulting Physician: Inderjit Ramos Reason for Consult: coughing, wheezing 12/04/18 16:46 Inpatient REQUIREMENTS ANALYST Core Measures Referral Routine Comment: Physician Instructions: Reason For Exam: admission complaints of SOB Time Spent in preparation of Discharge (in minutes): 30 Hospital Course - Lab Results Lab Results: Most Recent Lab Values WBC 19.0 K/uL (4.8-10.8) H 12/06/18 06:30 RBC 6.07 Mil/uL (3.80-5.20) H 12/06/18 06:30 Hgb 13.8 g/dL (11.0-16.0) 12/06/18 06:30 Hct 43.7 % (34.0-47.0) 12/06/18 06:30 MCV 72.0 fL (81.0-99.0) L 12/06/18 06:30 MCH 22.8 pg (27.0-31.0) L 12/06/18 06:30 MCHC 31.6 g/dL (33.0-37.0) L 12/06/18 06:30 RDW 14.6 % (11.5-14.5) H 12/06/18 06:30 Plt Count 346 K/uL (130-400) 12/06/18 06:30 MPV 8.4 fL (7.2-11.7) 12/06/18 06:30 Neut % (Auto) 58.1 % (50.0-75.0) 12/02/18 13:56 Lymph % (Auto) 32.2 % (20.0-40.0) 12/02/18 13:56 [place] % (Auto) 7.2 % (0.0-10.0) 12/02/18 13:56 Eos % (Auto) 1.9 % (0.0-4.0) 12/02/18 13:56 Baso % (Auto) 0.6 % (0.0-2.0) 12/02/18 13:56 Neut # (Auto) 4.2 K/uL (1.8-7.0) 12/02/18 13:56 Lymph # (Auto) 2.3 K/uL (1.0-4.3) 12/02/18 13:56 [place] # (Auto) 0.5 K/uL (0.0-0.8) 12/02/18 13:56 Eos # (Auto) 0.1 K/uL (0.0-0.7) 12/02/18 13:56 Baso # (Auto) 0.0 K/uL (0.0-0.2) 12/02/18 13:56 PT 12.0 SECONDS (9.7-12.2) 12/02/18 13:56 INR 1.1 12/02/18 13:56 APTT 32 SECONDS (21-34) 12/02/18 13:56 Puncture Site Rba 12/02/18 21:42 pCO2 29 mm/Hg (35-45) L 12/02/18 21:42 pO2 102 mm/Hg (80-100) H 12/02/18 21:42 HCO3 19.6 mmol/L (21-28) L 12/02/18 21:42 ABG pH 7.38 (7.35-7.45) 12/02/18 21:42 ABG Total CO2 18.1 mmol/L (22-28) L 12/02/18 21:42 ABG O2 Saturation 98.6 % (95-98) H 12/02/18 21:42 ABG Base Excess -6.8 mmol/L (-2.0-3.0) L 12/02/18 21:42 ABG Hemoglobin 11.3 g/dL (11.7-17.4) L 12/02/18 21:42 ABG Carboxyhemoglobin 1.1 % (0.5-1.5) 12/02/18 21:42 POC ABG HHb (Measured) 1.4 % (0.0-5.0) 12/02/18 21:42 ABG Methemoglobin 0.5 % (0.0-3.0) 12/02/18 21:42 Chris Test Pos 12/02/18 21:42 Hgb O2 Saturation 97.1 % (95.0-98.0) 12/02/18 21:42 Sodium 133 mmol/L (132-148) 12/06/18 06:30 Potassium 4.5 mmol/L (3.6-5.2) 12/06/18 06:30 Chloride 94 mmol/L (98-107) L 12/06/18 06:30 Carbon Dioxide 26 mmol/L (22-30) 12/06/18 06:30 Anion Gap 16 (10-20) 12/06/18 06:30 BUN 31 mg/dL (7-17) H 12/06/18 06:30 Creatinine 0.9 mg/dL (0.7-1.2) 12/06/18 06:30 Est GFR ( Amer) > 60 12/06/18 06:30 Est GFR (Non-Af Amer) > 60 12/06/18 06:30 Random Glucose 268 mg/dL (65-105) H D 12/06/18 06:30 Calcium 10.2 mg/dl (8.6-10.4) 12/06/18 06:30 Magnesium 2.3 mg/dL (1.6-2.3) 12/05/18 07:04 Total Bilirubin 0.4 mg/dL (0.2-1.3) 12/02/18 13:56 AST 33 U/L (14-36) 12/02/18 13:56 ALT 23 U/L (9-52) 12/02/18 13:56 Alkaline Phosphatase 74 U/L (38-126) 12/02/18 13:56 Total Protein 7.0 g/dL (6.3-8.3) 12/02/18 13:56 Albumin 4.1 g/dL (3.5-5.0) 12/02/18 13:56 Globulin 2.9 gm/dL (2.2-3.9) 12/02/18 13:56 Albumin/Globulin Ratio 1.4 (1.0-2.1) 12/02/18 13:56 Urine Color Yellow (YELLOW) 12/02/18 14:02 Urine Clarity Hazy (Clear) 12/02/18 14:02 Urine pH 5.0 (5.0-8.0) 12/02/18 14:02 Ur Specific [place] 1.019 (1.003-1.030) 12/02/18 14:02 Urine Protein Negative mg/dL (NEGATIVE) 12/02/18 14:02 Urine Glucose (UA) Normal mg/dL (Normal) 12/02/18 14:02 Urine Ketones Negative mg/dL (NEGATIVE) 12/02/18 14:02 Urine Blood Negative (NEGATIVE) 12/02/18 14:02 Urine Nitrate Negative (NEGATIVE) 12/02/18 14:02 Urine Bilirubin Negative (NEGATIVE) 12/02/18 14:02 Urine Urobilinogen Normal mg/dL (0.2-1.0) 12/02/18 14:02 Ur Leukocyte Esterase Neg [place]/uL (Negative) 12/02/18 14:02 Urine WBC (Auto) 1 /hpf (0-5) 12/02/18 14:02 Urine RBC (Auto) < 1 /hpf (0-3) 12/02/18 14:02 Ur Squamous Epith Cells 2 /hpf (0-5) 12/02/18 14:02 Urine Bacteria Rare (<OCC) 12/02/18 14:02 Influenza Typ A,B (EIA) Negative for flu a/b (NEGATIVE) 12/02/18 13:56 Discharge Plan - Discharge Medications Prescriptions: Albuterol/Ipratropium [Combivent Respimat] 1 puff IH Q12H 30 Days inhaler Methylprednisolone [Medrol Dose Pack (21 tabs)] 4 mg PO DAILY #21 mg guaiFENesin [Mucinex LA] 600 mg PO BID 5 Days tab - Follow Up Plan Condition: STABLE Disposition: HOME/ ROUTINE Instructions: Exacerbation of COPD (DC), Guaifenesin, Ipratropium and Albuterol, Methylprednisolone Additional Instructions: FOLLOW UP WITH DR YEE IN HIS OFFICE -----CALL FOR APPOINTMENT FOLLOW UP WITH DR RAMOS IN HIS OFFICE CONTINUE HOME MEDICATION NEW PRESCRIPTION GIVEN COMBIVENT AND MEDROL DOSE ACTIVITY TOLERATED CALL DR YEE OR GO TO THE EMERGENCY ROOM IF SYMPTOM RETURN OR WORSENING Referrals: Inderjit Ramos MD [Staff Provider] - Erlin Yee MD [Staff Provider] -
--- NOTE | 2018-12-07 03:49 | DS ---
DISCHARGE DIAGNOSES: Acute tracheobronchitis, poorly controlled hypertension, exacerbation of chronic obstructive pulmonary disease. HISTORY OF PRESENT ILLNESS: This is a 63-year-old female, well known to me with history of hypertension. She is compliant with her diet, medication and followup. She came in because of cough, congestion, shortness of breath, wheezing. She is ex-smoker. The patient was admitted to the floor. She was started on antibiotics, Solu-Medrol, oxygen nebulizer, guaifenesin. The patient's condition started improving. She is feeling better and she will be discharged on prednisone taper. She will be followed up by me as outpatient. PHYSICAL EXAMINATION: LUNGS: Bilateral decreased air entry, positive inspiratory, expiratory rhonchi. CARDIOVASCULAR SYSTEM: S1, S2. Regular. No heave. No thrill. ABDOMEN: Soft, nontender. Bowel sounds are positive. PLAN: Discharge the patient, monitor the patient. Erlin Yee MD
== END 2018-12-06 15:01 | disposition home or self-care (01) | DRG 88 ==
LOC: C.ER 13:07 → C.9E 14:18 → C.3T 15:45 → OBSVTOIN 12-04 14:53
PROVIDERS: ADMIT Internal Medicine; ATTEND Internal Medicine
DX: J44.0 Chronic obstructive pulmonary disease with (acute) lower respiratory infection (principal); J20.9 Acute bronchitis, unspecified; J44.1 Chronic obstructive pulmonary disease with (acute) exacerbation; I10 Essential (primary) hypertension; D72.829 Elevated white blood cell count, unspecified; T38.0X5A Adverse effect of glucocorticoids and synthetic analogues, initial encounter; E78.5 Hyperlipidemia, unspecified; Z87.891 Personal history of nicotine dependence; Z98.51 Tubal ligation status